=== PATIENT | male | born 1980 | race Asian ===

== ENCOUNTER 2017-11-13 09:09 | Emergency (ER) | payer OTHER ==
[~2017-11-13] VITALS: Ht 162.6 cm; Wt 55.3 kg
[2017-11-13 09:19] VITALS: Ht 162.6 cm; Wt 55.3 kg
[2017-11-13 14:14] VITALS: BP 120/73
== END 2017-11-13 14:14 | disposition home or self-care (01) ==
LOC: ED 09:09
DX: R10.9 Unspecified abdominal pain (principal)